=== PATIENT | female | born 1990 | race Caucasian/White ===

== ENCOUNTER → 2017-10-16 11:52 | Outpatient (CLI) | payer MEDICAID, SELFPAY ==
[2017-10-16 16:33] LABS: Chlamydia Trachomatis by PCR Negative (Negative); Neisserai gonorrhoeae by PCR Negative (Negative); Probe Check PASS; Sample Adequacy Control PASS; Specimen Processing Control PASS
[2017-10-22 12:54] LABS: HPV Reflexed? NOT INDICATED
== END ==
PROVIDERS: Visit Provider Obstetrics & Gynecology
DX: N39.0 Urinary tract infection, site not specified (principal); Z12.4 Encounter for screening for malignant neoplasm of cervix
CPT/HCPCS: 87077; 87086; 87088; 87186; 87491; 87591; 88175; G0145

== ENCOUNTER → 2017-12-28 10:41 | Outpatient (CLI) | payer MEDICAID, SELFPAY ==
[2017-12-28 12:27] LABS: Absolute Lymphocyte Count 2.22 X10^3/ul (0.83-4.51); Basophil# 0.04 X10^3/uL; Basophil% 0.4 % (0-1); Eosinophils% 5.2 % (0-5); Hematocrit 47.4 % (37-47); Hemoglobin 15.8 g/dl (12.0-15.0); Lymphocyte # 2.22 X10^3/ul (4.0); Lymphocyte % 23.2 % (19-41); Mean Corp Hgb Conc 33.3 g/gl (32-36); Mean Corpuscular Hgb 30.9 pg (27.0-32.0); Mean Corpuscular Volume 92.6 fL (81-99); Mean Platelet Vol. 13.2 fl (6.2-12.0); Monocyte# 0.76 X10^3/uL; Monocyte% 7.9 % (0-10); Neutrophil # 6.03 X10^3/uL (2.7-7.7); Platelet Count 160 K/mm3 (150-450); RBC Distribution Width CV 12.8 % (11.6-14.6); Red Blood Count 5.12 M/mm3 (4.2-5.4); White Blood Count 9.6 K/mm3 (4.4-11.0)
[2017-12-28 12:32] LABS: POSITIVE COUNT NO; POSITIVE DIFFERENTIAL NO; POSITIVE MORPHOLOGY NO
[2017-12-28 12:54] LABS: ALB/GLOB Ratio 1.1 RATIO (0.9-2.4); AST(SGOT) 32 U/L (15-37); Alanine Aminotransfer ALT/SGPT 54 U/L (13-56); Alkaline Phosphatase 84 U/L (45-117); Anion Gap 10 (5-15); BUN 17 mg/dL (7-18); BUN/Creat Ratio 19.9 RATIO (10-20); Calcium,Total 8.9 mg/dL (8.5-10.1); Chloride 107 mmol/L (98-107); Creatinine, Serum 0.85 mg/dL (0.55-1.02); EST Glomerular Filtration Rate 83 mL/min (>60); Est Glom Filt Rate - Afr Amer 101 mL/min (>60); Globulin 3.8 g/dL (2.2-4.2); Glucose 81 mg/dL (74-106); Potassium 4.3 mmol/L (3.5-5.1); Protein, Total 7.8 g/dL (6.4-8.2); Sodium Level 138 mmol/L (136-145); T4 Free Direct 0.89 ng/dL (0.76-1.46); Thyroid Stim Hormone (TSH) 7.13 uIU/mL (0.358-3.74)
== END ==
PROVIDERS: Family Provider Family Medicine; PCP Family Medicine; Visit Provider Family Medicine
DX: E03.9 Hypothyroidism, unspecified (principal); R03.0 Elevated blood-pressure reading, without diagnosis of hypertension; F41.9 Anxiety disorder, unspecified
CPT/HCPCS: 36415; 80053; 84439; 84443; 85025

== ENCOUNTER → 2018-04-12 13:04 | Outpatient (CLI) | payer MEDICAID, SELFPAY ==
--- OUTSIDE RECORDS SUMMARY | 2018-06-17 03:02 | XMS RPT_ITS ---
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 Report Specimen Number : [id number] Requested : 09/15/17 Specimen Source : URINE Collected : 09/15/17 15:20 [place] of Isolation : OUTPATIENT Received : 09/15/17 15:20 Requesting Physician : CHINEDU Patient/Specimen Tests and Comments Specimen Comments FINAL REPORT: URINE COLONY COUNT: 50,000-100,000 CFU/CC GRAM NEGATIVE RODS Organisms Identified -------- * 01 Escherichia coli 09/17/17 Comments 50-100,000 cfu Tech : Source : URINE ID # : [id number] FINAL Report Date : / / : Collected : 09/15/17 15:20 Continued on Next Page M I C R O B I O L O G Y R E P O R T FINAL Antimicrobial Susceptibility and Organism Identification Report Isolate 01 Escherichia coli Escherichia coli DRUG VASILE Sys. Urine --- ----- ----- Amp/Sulbactam >16/8 R R Ampicillin >16 R R Ceftriaxone <=8 S S Cephalothin 16 I Ciprofloxacin <=1 S S Cefuroxime 8 S S Ertapenem <=1 S S Nitrofurantoin <=32 S Imipenem <=1 S S Levofloxacin <=2 S S Meropenem <=1 S S Pip/Tazo <=16 S S Trimeth/Sulfa <=2/38 S S Tetracycline <=4 S S Tobramycin >8 R R +, ++, +++, or S = Susceptible N/R = Not Reported Bonny = Beta Lactamase Positive I = Intermediate CC = Cost Code TFG = Thymidine-dependent Strain R = Resistant VASILE = mcg/ml (mg/L) Blank = Data not available, or drug not advisable or tested For Blood and CSF Isolates, a Beta-Lactamase test is recommended for Enterococus species. IB appears in place of S, I (S), +, ++, or +++ with species known to possess inducible B-lactamases; potentially they may become resistant to all B-lactam drugs. Monitoring of patients during/after therapy is recommended. Avoid other/combined B-lactam drugs. (a) Use maximum doses of drug with an aminoglycoside for P. aeruginosa in patients with granulocytopenia or serious infections. (b) Breakpoints based on parenteral dose. For cefuroxime Axetil (PO) use <8=S, 8-16=I, >16=R. (c) For non-enterococcal streptococci, Micrococcus species, and Listeria species, refer to the Ampicillin interpretation. * Interpretations based on approx. adult attainable systemic/urine levels, except drugs with <3 dilutions, which print NCCLS. Doses are guidelines; consider weight and renal/hepatic function. Urine interpretation for lower UTI only. Interpretations based on NCCLS M7-A2. Ticar/K Clav'ate for gram positives based on marine technician's breakpoints. Tech : Source : URINE ID # : [id number] FINAL Report Date : / / : Collected : 09/15/17 15:20 09/17/17.1105.WKK. 09/16/17.0735.JLN. 09/17/17.1105.WKK.COMPLETE Performed By: #### [id number] #### [facility],[address] [place] [address] ALLERGIES ALLERGIES DATE TYPE / CODE NAME / CODE REACTION SEVERITY SOURCE 05/15/2014 Drug No Known Unknown [place] Allergy/[id number](S Allergies/F0019 [facility] NOMED CT) 91583(RXNORM) Hospital Repository Miscellaneous No Known Moderate [facility] Allergy/[id number](S Allergies (Severity [facility] NOMED CT) Modifier) Hospital (Qualifier Repository Value) ENCOUNTERS ENCOUNTERS ADMIT/DISCHARGE ACCOUNT ADMITTING ENCOUNTER LOCATION SOURCE NUMBER CLASS 04/17/2018 [id number] Ambulatory [place] 0 [facility] ing:US Repository 04/12/2018 [id number] Ambulatory [place] 9 [facility] ing:BFHLAB Repository 04/08/2018/ [id number] ADAN CHARLES Ambulatory [address] Repository 04/08/2018 [id number] [facility] 12/28/2017 [id number] Ambulatory [place] 3 [facility] ing:BFHLAB Repository 10/16/2017 [id number] Ambulatory [place] Huss[place] 4 [facility] ing:LABSPEC Repository 10/05/[address]/ [id number] DR STEVE DE LA FUENTE [facility] [place] [address] C oom: ERBed: D [facility] Repository 09/15/2017/ [id number] CHINEDU [address] Repository PAYERS PAYERS ENCOUNTER GUARANTOR PAYER SUBSCRIBER SOURCE 04/17/2018 AUBREY Leary Primary AUBREY Nixon [id number] Insurance:[facility] MOINKAB: [address] Number: [id number] [address]Omd: [phone]) [id number] Repository [phone] () Date:2018-04-12[address]ATTN: [place] [address]FM: 04/17/2018 Secondary NOT GIVENUNK Huss[place] Insurance:SELF PAY [facility] Number: Effective Repository Date:2018-04-12 04/12/2018 Aubrey Primary Aubrey HobsonDOB: [place] [id number] Insurance:CARESOURCEPo [id number] [address] licy Number: [address] [id number] Repository [address]Olx: ([phone]) Date:2018-04-12[phone] () [address]ATTN: [place] [address]RP: 04/12/2018 Secondary NOT GIVENUNK Hussain Insurance:SELF PAY [facility] Number: Effective Repository Date:2018-04-12 04/08/2018 AUBREY Primary Aubrey L Kelton Carranza HOBSONDOB: Insurance:CARESOURCE HobsonDOB: [facility] [id number] [facility] [id number] [place] [address], Number: [address] [place] [address]Wme: [id number] 29[place], [place] Date:Plan Name:[id number] () 04/08/2018 AUBREY Primary AUBREY HOBSONDOB: Kelton Carranza HOBSONDOB: Insurance:CARESOURCE - [id number] [facility] [id number] MEDICAID HMOPolicy [address] [facility] [address], [place]: [place] [address]Xdi: [id number] Date:Plan Name: () 12/28/2017 Aubrey Primary Aubrey HobsonDOB: [place] [id number] Insurance:CARESOURCEPo [id number] licy Number: [address] [id number] Repository [address]Blg: 330) Date:2017-12-28[phone] () [address]ATTN: [place] [address]TO: 12/28/2017 Secondary NOT GIVENUNK Hussain Insurance:SELF PAY [facility] Number: Effective Repository Date:2017-12-28 10/16/2017 Aubrey Primary Aubrey HobsonDOB: [place] [id number] Insurance:CARESOURCEPo [id number] licy Number: [address] [id number] Repository [address]Asv: (330) Date:2017-10-16[phone] () [address]ATTN: [place] [address]AM: 10/16/2017 Secondary NOT GIVENUNK [place] Insurance:SELF PAY [facility] Number: Effective Repository Date:2017-10-16 10/05/2017 AUBREY Primary AUBREY HOBSONDOB: Kelton Pompilarne HOBSONDOB: Insurance:LIABILITY [id number] [facility] [id number] [address], Number: [place], [place] [address]Hgg: [id number] Date:Plan Name:F1 () 10/05/2017 Secondary AUBREY L Kelton Pompilarne Insurance:CARESOURCE HOBSONDOB: [facility] [id number] Hospital Number: [address] Repository [id number] [address] [place] [address] Date:Plan Name:[id number] 09/15/2017 ABUREY Primary AUBREY HOBSONDOB: Kelton Pomerene HOBSONDOB: Insurance:CARESOURCE [id number] [facility] [id number] [address] Number: [place] Repository [address] [place] [address] [id number]: (330) Date:Plan Name:X3 [phone] ()
== END ==
PROVIDERS: Family Provider Family Medicine; PCP Family Medicine; Visit Provider Family Medicine
DX: N39.0 Urinary tract infection, site not specified (principal)
CPT/HCPCS: 36415; 87077; 87086; 87088; 87186

== ENCOUNTER → 2018-04-17 12:38 | Outpatient (CLI) | payer MEDICAID, SELFPAY ==
--- NOTE | 2018-04-17 12:43 | US_ITS ---
STUDY: RENAL ULTRASOUND - COMPLETE REASON FOR EXAM: Female, 27 years old. 8 month history of left lower quadrant pain. Nephrolithiasis. TECHNIQUE: Ultrasound evaluation of the kidneys was performed with real-time and static mcnamara-scale imaging. COMPARISON: None. FINDINGS: RIGHT KIDNEY: Normal location of the right kidney, which is normal in size. The right kidney measures 10.0 cm x 5.1 cm x 5.3 cm. There is a normal cortex of the right kidney. The renal cortex measures 1.5 cm. There is no right renal mass or cyst. 3 nonobstructive intrarenal calculi are seen. The largest measures 4 mm. There is mild hydronephrosis of the right kidney. DISTAL RIGHT URETER: There is non-visualization of the distal right ureter. There is no demonstrated right ureterovesical junction calculus. There is a visualized right ureteral jet. LEFT KIDNEY: Normal location of the left kidney, which is normal in size. The left kidney measures 10.3 cm x 5.9 cm x 5.0 cm. There is a normal cortex of the left kidney. The renal cortex measures 1.6 cm. There is no left renal mass or cyst. 3 nonobstructive intrarenal calculi are seen in the larger measures 5 mm. There is mild hydronephrosis of the left kidney. DISTAL LEFT URETER: There is non-visualization of the distal left ureter. There is no demonstrated left ureterovesical junction calculus. There is a visualized left ureteral jet. BLADDER: The distended urinary bladder has a volume of 216 ml. The empty urinary bladder has a volume of 10.5 ml. There is a normal wall thickness of the distended urinary bladder. There is no demonstrated mass within the urinary bladder. There are no demonstrated bladder calculi. US/Kidney and Bladder IMPRESSION: Nonobstructing bilateral intrarenal calculi. Mild bilateral hydronephrosis. Electronically Signed: Darinel Albarran MD at 15:10 EST , Service support ,
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
== END ==
PROVIDERS: Family Provider Family Medicine; PCP Family Medicine; Referring Provider Family Medicine; Visit Provider Family Medicine
DX: N20.0 Calculus of kidney (principal); N39.0 Urinary tract infection, site not specified; R10.32 Left lower quadrant pain; Z87.442 Personal history of urinary calculi
CPT/HCPCS: 76770

== ENCOUNTER 2018-05-21 10:36 | Day surgery (SDC) | payer MEDICAID, SELFPAY ==
[2018-05-21] VITALS (16 sets, daily range): BP systolic 144–168; BP diastolic 100–117; PULSE 71–98; RESP 14–18; TEMP 36.4–37.2; O2SAT 95–100; BMI 28.9
[2018-05-21 11:00] LABS: Internal QC Validated? YES +Cl - CLEAR BKGD; Pregnancy, Urine Negative Negative
[2018-05-21] MEDS: Cefazolin 2 GM in 0.9% Normal Saline 100 ML IV (11:26)
--- NOTE | 2018-05-21 11:29 | DCINST_ITS ---
Discharge Diet: No Restrictions Discharge Activity: Return to Normal Activity, May not drive while taking narcotic pain medications. Call your doctor if you observe: Fever of 101 or Higher, Inability to urinate, Shortness of breath, Chest pain, Calf discomfort, Uncontrolled pain Allergies/Adverse Reactions: Allergies No Known Allergies Allergy (Verified 05/21/18 10:56) Medications to take at Discharge Levothyroxine [Synthroid] 100 mcg PO DAILY 05/17/18 Primary Care Physician: Adan Charles MD [Primary Care Provider] - Test Results: Test results from this visit will be discussed in further detail at your follow- up appointment, if applicable. Please Follow Up With: Mariana Horner MD When: 1 week, call for appt Proposed Discharge Date: 05/21/18
--- NOTE | 2018-05-21 11:31 | OP.PCM_ITS ---
Problem List (1) Right distal ureteral calculus Status: Acute Report of Operation Date of Procedure: 05/21/18 Pre-Operative Diagnosis: distal right ureteral calculus Post-Operative Diagnosis: same Surgery/Procedure Performed:: cystoscopy, right retrograde pyelogram Description of Surgical Findings:: large distal ureteral stone was lasered into small fragments and removed. stent in good position. Type of Anesthesia:: General Estimated Blood Loss (mL): 2cc Description of Procedure: The patient is a 27-year-old female came to the office with blood in her urine and lower abdominal cramping. Her CT scan was questionable for a large distal right ureteral calculus. After discussing the alternatives, the patient agreed to proceed with laser lithotripsy as definitive treatment for her stone. Informed consent was obtained. The patient was taken to the operating room and placed on the operating room table. Anesthesia monitored the head, neck, airway, IV access, vital signs throughout the case. Once anesthesia was administered, the patient was placed into dorsal lithotomy position was prepped and draped in usual sterile fashion. A cystourethroscopy was performed revealing no evidence of mucosal abnormality including mass, erythema, ulceration or foreign body. The patient's right ureteral orifice was intubated with an 8 Croatian cone-tip catheter and contrast was injected in retrograde fashion under fluoroscopic visualization. The large stone identified on fluoroscopy and CT scan was indeed within the distal right ureter. At this time a 0.035 Glidewire was passed into the renal pelvis without difficulty. The stone was easily visualized with the semirigid ureteroscope. The stone was fragmented into multiple small pieces using a 270 ?m laser fiber. The small stone fragments were then removed using a stone basket. At this time using the indwelling Glidewire, a 6 Croatian 24 cm double-J stent was placed without difficulty. There was good curling in the renal pelvis as well as the urinary bladder. The patient's bladder was then emptied. The stone was sent for analysis. The patient was awakened and taken to the recovery room in good condition. There were no complications during the procedure. Grafts/Implants Used: 6Fr 24cm JJ stent - Complications none - Admit VTE Documentation VTE Present on Admission: Yes VTE Mechan Device Prophylaxis: SCD's VTE Pharm Prophylaxis ordered?: No Reason prophylaxis not ordered:: Treatment Not Indicated
--- NOTE | 2018-05-21 11:54 | CALC_PTH ---
PATIENT: AUBREY URIBE [place] [facility] [id number] AGE/SX: 27/F ROOM: RE05/21/[address]: Dr. Mariana Horner MD : [id number] BED: DIS: 05/21/2018 SPEC #: [id number] RECD: 05/21/18 13:35 STATUS: ELDA AHMADIShaan #: [id number] VENKATA: 05/21/18 11:[address]: Mariana Horner DEPT: SURGICAL PATHOLOGY RECD BY: Darin Hernandez ENTERED: 05/21/18 13:36 SP TYPE: Calculi OTHR DR: Dr. Adan Charles MD Tissues: CALCULI Procedures: Surgery Specimen Level I HEADER OPERATION: Cysto, Ureteroscopy, retro, laser, stent PRE-OP DIAGNOSIS: Calculus of ureter, calculus of kidney, stress incontinence, urge incontinence TISSUE SUBMITTED: Left ureteral calculi GROSS DIAGNOSIS Fragments of stone, clinically left ureteral calculi, submitted for analysis. SJ:laurence 05/21/18 COMMENT The calculus is submitted in its entirety for chemical stone analysis. The results from this study will be reported separately. GROSS DESCRIPTION Received is one container labeled with the patient's name and designated left ureteral calculi. The specimen consists of multiple fragments of tran-brown stone that in aggregate measure 0.6 x 0.3 x 0.2 cm. The entire specimen is submitted for stone analysis. / BARNEY:laurence 05/21/18 CPT: 40970
[2018-05-21] MEDS: HYDROcodone Bitartrate/Apap 5/325 Tablet PO (15:03)
[2018-05-21] MEDS: Ketorolac 30 MG/ML Syringe IV (15:03)
[2018-05-21] MEDS: Phenazopyridine 95 MG Tablet 190 MG PO (15:27)
[2018-05-27 17:10] LABS: Ca Oxalate, Dihydrate 15 % (.); Ca Oxalate, Monohydrate 55 % (.); Calcium Phosphate 30 % (.)
== END 2018-05-21 15:40 | disposition home or self-care (01) ==
LOC: SDC 10:37 → AC 10:38
PROVIDERS: Anesthesiology; Family Provider Family Medicine; PCP Family Medicine; Referring Provider Urology; Visit Provider Urology
PROC: 0TJ98ZZ Inspection of Ureter, Via Natural or Artificial Opening Endoscopic (ICD-10-PCS; CPT 52352; principal; 2018-05-21 11:55)
DX: N20.1 Calculus of ureter (principal); N39.46 Mixed incontinence; F17.200 Nicotine dependence, unspecified, uncomplicated; E03.9 Hypothyroidism, unspecified; Z79.899 Other long term (current) drug therapy; Z87.442 Personal history of urinary calculi
CPT/HCPCS: 52325; 52332; 76000; 81025; 82360; 88300; J7120; C2617; J2405

== ENCOUNTER → 2019-11-03 14:48 | Outpatient (CLI) | payer MEDICAID, SELFPAY ==
[2018-05-21 11:00] VITALS: BMI 28.9
[2019-11-03 17:07] LABS: Absolute Lymphocyte Count 2.21 X10^3/uL (0.83-4.51); Absolute Neutrophil Count 7.2 X10^3/uL (2.0-7.7); Basophil# 0.04 X10^3/uL; Basophil% 0.4 % (0-1); Eosinophil# 0.42 X10^3/uL; Eosinophils% 3.9 % (0-5); Hematocrit 46.9 % (37-47); Hemoglobin 15.3 g/dL (12.0-15.0); Lymphocyte # 2.21 X10^3/ul (4.0); Lymphocyte % 20.8 % (19-41); Mean Corp Hgb Conc 32.6 g/dL (32-36); Mean Corpuscular Hgb 30.1 pg (27.0-32.0); Mean Corpuscular Volume 92.1 fL (81-99); Mean Platelet Vol. 12.2 fl (6.2-12.0); Monocyte# 0.77 X10^3/uL; Monocyte% 7.2 % (0-10); NRBC Flagged by Analyzer 0 % (0-5); Neutrophil # 7.18 X10^3/uL (2.7-7.7); Neutrophil % 67.4 % (47-70); Platelet Count 233 K/mm3 (150-450); RBC Distribution Width CV 12.8 % (11.6-14.6); RBC Distribution Width SD 43.7 fl (35.1-43.9); Red Blood Count 5.09 M/mm3 (4.2-5.4); White Blood Count 10.7 K/mm3 (4.4-11.0)
[2019-11-03 17:26] LABS: Anion Gap 8 (5-15); BUN 14 mg/dL (7-18); BUN/Creat Ratio 15.2 RATIO (10-20); Calcium,Total 9.2 mg/dL (8.5-10.1); Chloride 107 mmol/L (98-107); Creatinine, Serum 0.92 mg/dL (0.55-1.02); EST Glomerular Filtration Rate 76 mL/min (>60); Est Glom Filt Rate - Afr Amer 91 mL/min (>60); Glucose 94 mg/dL (74-106); Potassium 3.8 mmol/L (3.5-5.1); Sodium Level 139 mmol/L (136-145); T4 Free Direct 1.47 ng/dL (0.76-1.46); Thyroid Stim Hormone (TSH) 1.47 uIU/mL (0.358-3.74)
== END ==
PROVIDERS: PCP Family Medicine; Visit Provider Family Medicine
DX: E03.9 Hypothyroidism, unspecified (principal); I10 Essential (primary) hypertension
CPT/HCPCS: 36415; 80048; 84439; 84443; 85025

== ENCOUNTER → 2020-02-16 13:45 | Outpatient (CLI) | payer MEDICAID, SELFPAY ==
[2018-05-21 11:00] VITALS: BMI 28.9
[2020-02-16 16:02] LABS: Anion Gap 6 (5-15); BUN 16 mg/dL (7-18); BUN/Creat Ratio 16.3 RATIO (10-20); Calcium,Total 9.2 mg/dL (8.5-10.1); Chloride 108 mmol/L (98-107); Creatinine, Serum 0.98 mg/dL (0.55-1.02); EST Glomerular Filtration Rate 70 mL/min (>60); Est Glom Filt Rate - Afr Amer 85 mL/min (>60); Glucose 92 mg/dL (74-106); Potassium 3.7 mmol/L (3.5-5.1); Sodium Level 139 mmol/L (136-145)
== END ==
PROVIDERS: PCP Family Medicine; Visit Provider Family Medicine
DX: I10 Essential (primary) hypertension (principal)
CPT/HCPCS: 36415; 80048

== ENCOUNTER 2021-03-28 11:22 | Outpatient (CLI) | payer MEDICAID, SELFPAY ==
[2021-03-28 14:27] LABS: Absolute Lymphocyte Count 2.54 X10^3/uL (0.83-4.51); Absolute Neutrophil Count 10.5 X10^3/uL (2.0-7.7); Basophil# 0.06 X10^3/uL; Basophil% 0.4 % (0-1); Eosinophil# 0.27 X10^3/uL; Eosinophils% 1.9 % (0-5); Hematocrit 51.2 % (37-47); Lymphocyte # 2.54 X10^3/ul (0.83-4.51); Lymphocyte % 17.6 % (19-41); Mean Corp Hgb Conc 33.2 g/dL (32-36); Mean Corpuscular Hgb 30.5 pg (27.0-32.0); Mean Corpuscular Volume 91.8 fL (81-99); Mean Platelet Vol. 12.3 fl (6.2-12.0); Monocyte# 0.97 X10^3/uL; Monocyte% 6.7 % (0-10); NRBC Flagged by Analyzer 0 % (0-5); Neutrophil # 10.54 X10^3/uL (2.7-7.7); Neutrophil % 73.1 % (47-70); Platelet Count 234 K/mm3 (150-450); RBC Distribution Width CV 14.6 % (11.6-14.6); RBC Distribution Width SD 48.8 fl (35.1-43.9); Red Blood Count 5.58 M/mm3 (4.2-5.4); White Blood Count 14.4 K/mm3 (4.4-11.0)
[2021-03-28 14:52] LABS: AST(SGOT) 18 U/L (15-37); Alanine Aminotransfer ALT/SGPT 38 U/L (13-56); Alkaline Phosphatase 112 U/L (45-117); Anion Gap 7 (5-15); BUN 13 mg/dL (7-18); BUN/Creat Ratio 16.7 RATIO (10-20); Calcium,Total 9.2 mg/dL (8.5-10.1); Chloride 107 mmol/L (98-107); Cholesterol 171 mg/dL (200); Creatinine, Serum 0.78 mg/dL (0.55-1.02); EST Glomerular Filtration Rate 91 mL/min (>60); Est Glom Filt Rate - Afr Amer 110 mL/min (>60); Globulin 4.2 g/dL (2.2-4.2); Glucose 85 mg/dL (74-106); High Density Lipoprotein 46 mg/dL; Potassium 3.7 mmol/L (3.5-5.1); Protein, Total 8.2 g/dL (6.4-8.2); Sodium Level 137 mmol/L (136-145); T4 Free Direct 1.19 ng/dL (0.76-1.46); Thyroid Stim Hormone (TSH) 3.86 uIU/mL (0.358-3.74); Triglycerides 109 mg/dL; Very Low Density Lipoprotein 22 mg/dL (5-40)
== END 2021-03-28 23:59 | disposition short-term general hospital (02) ==
LOC: MTLAB 11:24
PROVIDERS: PCP Family Medicine; Referring Provider Family Medicine; Visit Provider Family Medicine
DX: I10 Essential (primary) hypertension (principal); E03.9 Hypothyroidism, unspecified; F41.9 Anxiety disorder, unspecified
CPT/HCPCS: 36415; 80053; 80061; 84439; 84443; 85025

== ENCOUNTER → 2022-09-25 | Outpatient (CLI) | payer MEDICAID, SELFPAY ==
[2022-09-25 15:11] LABS: Absolute Neutrophil Count 8.7 X10^3/uL (2.0-7.7); Basophil# 0.05 X10^3/uL; Basophil% 0.4 % (0-1); Eosinophil# 0.34 X10^3/uL; Eosinophils% 2.8 % (0-5); Hematocrit 50.8 % (37-47); Hemoglobin 16.6 g/dL (12.0-15.0); Lymphocyte % 16.6 % (19-41); Mean Corp Hgb Conc 32.7 g/dL (32-36); Mean Corpuscular Hgb 32.4 pg (27.0-32.0); Mean Platelet Vol. 12.1 fl (6.2-12.0); Monocyte# 0.91 X10^3/uL; Monocyte% 7.5 % (0-10); NRBC Flagged by Analyzer 0 % (0-5); Neutrophil # 8.72 X10^3/uL (2.7-7.7); Neutrophil % 72.4 % (47-70); Platelet Count 242 K/mm3 (150-450); RBC Distribution Width CV 15.3 % (11.6-14.6); RBC Distribution Width SD 55.2 fl (35.1-43.9); Red Blood Count 5.13 M/mm3 (4.2-5.4); White Blood Count 12.1 K/mm3 (4.4-11.0)
[2022-09-25 15:54] LABS: Vitamin D,25 Hydroxy 33.4 ng/mL
[2022-09-25 16:17] LABS: ALB/GLOB Ratio 0.9 RATIO (0.9-2.4); AST(SGOT) 25 U/L (15-37); Alanine Aminotransfer ALT/SGPT 35 U/L (13-56); Albumin, Serum 3.7 g/dL (3.2-5.0); Alkaline Phosphatase 97 U/L (45-117); Anion Gap 5 (5-15); BUN 11 mg/dL (7-18); BUN/Creat Ratio 11.6 RATIO (10-20); Calcium,Total 9.2 mg/dL (8.5-10.1); Chloride 109 mmol/L (98-107); Cholesterol 173 mg/dL (200); Creatinine, Serum 0.95 mg/dL (0.55-1.02); EST Glomerular Filtration Rate 72 mL/min (>60); Est Glom Filt Rate - Afr Amer 87 mL/min (>60); Globulin 3.9 g/dL (2.2-4.2); Glucose 94 mg/dL (74-106); High Density Lipoprotein 45 mg/dL; Potassium 4.4 mmol/L (3.5-5.1); Protein, Total 7.6 g/dL (6.4-8.2); Sodium Level 135 mmol/L (136-145); T4 Free Direct 0.97 ng/dL (0.76-1.46); Triglycerides 184 mg/dL; Very Low Density Lipoprotein 37 mg/dL (5-40)
[2022-09-29 10:09] LABS: Age Gdln ACOG Testing 30-65 (.); HPV APTIMA, High Risk Negative (Negative)
[2022-09-29 16:50] LABS: HPV Reflexed? YES, CHARGE PATIENT
== END | disposition home or self-care (01) ==
LOC: BFHLAB 11:20
PROVIDERS: PCP Nurse Practitioner Family; Referring Provider Nurse Practitioner Family; Visit Provider Nurse Practitioner Family
DX: Z00.00 Encounter for general adult medical examination without abnormal findings (principal); I10 Essential (primary) hypertension; E03.9 Hypothyroidism, unspecified; Z12.4 Encounter for screening for malignant neoplasm of cervix
CPT/HCPCS: 36415; 80053; 80061; 82306; 84439; 84443; 85025; 87624; 88175; G0145

== ENCOUNTER → 2022-11-13 | Outpatient (CLI) | payer MEDICAID, SELFPAY ==
[2022-11-13 13:35] LABS: T4 Free Direct 1.15 ng/dL (0.76-1.46); Thyroid Stim Hormone (TSH) 1.87 uIU/mL (0.358-3.74)
== END | disposition home or self-care (01) ==
LOC: BFHLAB 10:39
PROVIDERS: PCP Nurse Practitioner Family; Referring Provider Nurse Practitioner Family; Visit Provider Nurse Practitioner Family
DX: E03.9 Hypothyroidism, unspecified (principal)
CPT/HCPCS: 36415; 84439; 84443

== ENCOUNTER → 2024-09-16 | Outpatient (CLI) | payer MEDICAID, SELFPAY ==
[2024-09-16 15:56] LABS: Absolute Lymphocyte Count 2.31 X10^3/uL (0.83-4.51); Absolute Neutrophil Count 8.2 X10^3/uL (2.0-7.7); Basophil# 0.07 X10^3/uL; Basophil% 0.6 % (0-1); Eosinophil# 0.34 X10^3/uL; Eosinophils% 2.9 % (0-5); Hematocrit 43.8 % (37-47); Hemoglobin 15.2 g/dL (12.0-15.0); Lymphocyte # 2.31 X10^3/ul (0.83-4.51); Lymphocyte % 19.5 % (19-41); Mean Corp Hgb Conc 34.7 g/dL (32-36); Mean Corpuscular Hgb 38.3 pg (27.0-32.0); Mean Corpuscular Volume 110.3 fL (81-99); Mean Platelet Vol. 11.2 fl (6.2-12.0); Monocyte# 0.83 X10^3/uL; NRBC Flagged by Analyzer 0 % (0-5); Neutrophil # 8.23 X10^3/uL (2.7-7.7); Neutrophil % 69.6 % (47-70); Platelet Count 298 K/mm3 (150-450); RBC Distribution Width CV 13.9 % (11.6-14.6); RBC Distribution Width SD 56.7 fl (35.1-43.9); Red Blood Count 3.97 M/mm3 (4.2-5.4); White Blood Count 11.8 K/mm3 (4.4-11.0)
[2024-09-16 16:23] LABS: ALB/GLOB Ratio 1.5 RATIO (0.9-2.4); AST(SGOT) 26 U/L (<=31); Alanine Aminotransfer ALT/SGPT 25 U/L (<=34); Albumin, Serum 4.4 g/dL (3.5-5.0); Alkaline Phosphatase 103 U/L (35-104); Anion Gap 14 (5-15); BUN 10 mg/dL (4-19); BUN/Creat Ratio 13.9 RATIO (10-20); Calcium,Total 9.5 mg/dL (7.6-11.0); Carbon Dioxide 18.6 mmol/L (21.0-32.0); Chloride 105 mmol/L (98-108); Creatinine, Serum 0.71 mg/dL (0.70-1.20); EST Glomerular Filtration Rate 113 (>60); Globulin 2.9 g/dL (2.2-4.2); Glucose 88 mg/dL (70-99); Potassium 4.1 mmol/L (3.3-5.1); Protein, Total 7.3 g/dL (5.9-8.4); Sodium Level 137 mmol/L (133-145); Total Bilirubin 0.62 mg/dL (0.00-1.30)
[2024-09-16 17:15] LABS: Cholesterol 162 mg/dL (<=200); High Density Lipoprotein 42 mg/dL; Low Density Lipoprotein Calc. 84 mg/dL; Triglycerides 179 mg/dL; Very Low Density Lipoprotein 36 mg/dL (5-40); cholesterol:hdl ratio screen 3.83
== END | disposition home or self-care (01) ==
LOC: BFHLAB 11:46
PROVIDERS: PCP Nurse Practitioner Family; Visit Provider Nurse Practitioner Family
DX: Z00.00 Encounter for general adult medical examination without abnormal findings (principal); I10 Essential (primary) hypertension; E03.9 Hypothyroidism, unspecified; E55.9 Vitamin D deficiency, unspecified
CPT/HCPCS: 36415; 80053; 80061; 82306; 84439; 84443; 85025